=== PATIENT | male | born 1965 | race Caucasian/White ===

== ENCOUNTER 2023-02-03 09:27 | Emergency (ER) | payer OTHER ==
[2023-02-03 09:42] VITALS: TEMP 97.6
[2023-02-03] MEDS ORDERED: Nitrostat 0.4 MG (ED) SL ONE ×2 (09:46→10:05)
[2023-02-03] MEDS ORDERED: BABY ASPIRIN 81 MG CHEW PO ONE (09:47)
[2023-02-03] MEDS ORDERED: BABY ASPIRIN 81 MG CHEW ONE (10:05)
[2023-02-03] MEDS ORDERED: Heparin 25,000 units/D5W: USE ORDER SET PROTO 25,000 UNITS/250 ML BAG IV ONE (10:05)
[2023-02-03] MEDS ORDERED: HEPARIN 5000 UNITS/0.5 ML (HIGH RISK MED) ONE (10:05)
[2023-02-03] MEDS ORDERED: Ntg 0.2MG/Ml in D5W GLASS*** 250 ML IV ONE (10:06)
[2023-02-03] MEDS ORDERED: Sodium Chloride 0.9% 1000 ML 1,000 ML ONE (10:11)
[2023-02-03 10:14] LABS: BASOPHIL % 0.7 % (0.0-0.4); Basophil (Absolute #) 0.04 x10^3/uL (0-0.4); Eosinophil % 3.2 % (0.00-5.0); Eosinophil (Absolute #) 0.18 x10^3/uL (0-0.5); Hematocrit 47.4 % (42-50); Hemoglobin 15.7 g/dL (12.5-18.0); IMMATURE GRAN # 0.01 x10^3u/L (0.00-0.03); IMMATURE GRAN % 0.2 % (0.00-0.4); Lymphocyte (Absolute #) 1.21 x10^3/uL (1.0-4.6); Lymphocytes % 21.3 % (24.0-44.0); Mean Cell Volume 91.9 fL (78-100); Mean Corpuscular Hemoglobin 30.4 pg (26-32); Mean Corpuscular Hgb Concent. 33.1 g/dL (32-36); Mean Platelet Volume 9.8 fL (7.5-11.0); Monocyte (Absolute #) 0.55 x10^3/uL (0.0-1.3); Monocytes % 9.7 % (0.0-12.0); Neutrophil % 64.9 % (36.0-66.0); Platelet Count 203 x10^3/uL (150-450); Red Blood Count 5.16 x10^6/uL (4.1-5.6); Red Cell Distribution Width 13.2 % (11.5-14.0); White Blood Count 5.7 x10^3/uL (4.0-10.5)
--- NOTE | 2023-02-03 10:14 | XRAY ---
Indication: Chest pain. Comparison: None Portable chest hyperinflated with tiny left base calcified granuloma. No focal infiltrate, consolidation, or large effusion. Heart not enlarged. Bony thorax intact with osteopenia and mild degenerative changes. Impression: Nonacute hyperinflated chest with chronic features.
[2023-02-03] MEDS ORDERED: LOPRESSOR INJECTION IV ONE ×4 (10:26→10:35)
[2023-02-03 10:34] LABS: INR 0.97 (0.8-3.0); PROTIME 10.6 SECONDS (9.4-12.5); PTT 26.6 SECONDS (25.1-36.5)
[2023-02-03 10:45] LABS: ALBUMIN 4.7 g/dL (3.5-5.0); ALKALINE PHOSPHATASE 111 U/L (38-126); ANION GAP 13.2 MEQ/L (5-15); BLOOD UREA NITROGEN 11 mg/dL (9-20); CHLORIDE 100 mmol/L (98-107); Calcium 8.9 mg/dL (8.4-10.2); Carbon Dioxide 25 mmol/L (22-30); Creatinine 1 0.64 mg/dL (0.66-1.25); EST GLOMERULAR FILTRATION RATE > 60.0 ML/MIN; Glucose 162 mg/dL (74-106); MAGNESIUM 2.3 mg/dL (1.6-2.3); NT PRO BNPII 680 pg/mL (<300); Potassium 3.7 mmol/L (3.5-5.1); SGOT/AST 33 U/L (17-59); SGPT/ALT 24 U/L (0-50); SODIUM 134 mmol/L (137-145)
[2023-02-03 10:56] VITALS: BP 181/131; PULSE 95; RESP 22
[2023-02-03 11:04] LABS: TROPONIN 0.224 ng/mL (0.000-0.034)
--- NOTE | 2023-02-03 11:31 | ERPHSYRPT ---
- History of Present Illness Historian: patient Exam Limitations: other (Poor historian) Patient Subjective Stated Complaint: Chest pain Triage Nursing Assessment: Patient ambulated back to ED and transferred self to bed. Patient A+O X3. Patient's skin pink, warm and dry. Patient complains of chest pain that started about 1 week ago that has gotten worse. Patient states he stopped taking his blood pressure medication, but started taking med yesterday and the chest pain went away. Patient complains of contant burning tightness to chest to goes into back 4/10. Lungs clear A/P apurva. No edema noted. Physician History: 57 yo WM w PMH of HTN/hyperlipidemia who has not been taking his Lopressor presents w sub-sternal chest pain w radiation to his back x 3.5 hours. Pain described as pressure-burning and was 4/10 and improving upon arrival. The pain was 8/10 at max and was accompanied by dyspnea/diaphoresis wo N/V. He denies h/o FL/CAD. Pt markedly hypertensive upon arrival, and 324 ASA chewable/SL NTG x 1 ordered immediately. Initial EKG demonstrated sinus tach/LVH w strain/prolonged QTc/possible elevation 3/AVF. EKG repeated which demonstrated inferior elevation, so STEMI called. Heparin drip/bolus ordered, along w NTG drip. Region al called, and Dr. Mojica consulted. EKG sent to Dr. Mojica, who confirmed STEMI. Pt given Lopressor 5mg IV x2 for markedly elevated BP/tachycardia. Delay in transfer due to difficult IV access and no ambulance available for transfer. Timing/Duration: other (3.5hrs) Activities at Onset: rest Quality: burning, pressure Location: substernal Chest Pain Radiation: back Severity of Pain-Max: severe Severity of Pain-Current: mild Modifying Factors: Improves With: nothing Associated Symptoms: shortness of breath, diaphoresis Prior Chest Pain/Cardiac Workup: no prior chest pain Nitro Today/Relief: no nitro taken today Aspirin Treatment Today: no aspirin today Allergies/Adverse Reactions: No Known Drug Allergies Allergy (Verified 02/03/23 09:33) Home Medications: Metoprolol Tartrate 25 mg [Lopressor 25MG Tab] 12.5 mg PO BID 02/03/23 [History] Omeprazole Magnesium [Prilosec Otc] 1 tab PO DAILY 02/03/23 [History] Hx Tetanus, Diphtheria Vaccination/Date Given: No Hx Influenza Vaccination/Date Given: No Hx Pneumococcal Vaccination/Date Given: No Immunizations Up to Date: Yes Travel Risk - International Travel Have you traveled outside of the country in past 3 weeks: No - Coronavirus Screening Are you exhibiting any of the following symptoms?: No Close contact with a COVID-19 positive Pt in past 14-21 Days: No - Vaccine Status Have you recieved a Covid-19 vaccination: No - Review of Systems Constitutional: No Symptoms Eyes: No Symptoms Ears, Nose, & Throat: No Symptoms Respiratory: No Symptoms, Dyspnea Cardiac: No Symptoms, Chest Pain Abdominal/Gastrointestinal: No Symptoms Genitourinary Symptoms: No Symptoms Musculoskeletal: No Symptoms Skin: No Symptoms Neurological: No Symptoms Psychological: No Symptoms Endocrine: No Symptoms Hematologic/Lymphatic: No Symptoms Immunological/Allergic: No Symptoms - Past Medical History Pertinent Past Medical History: Yes Neurological History: No Pertinent History ENT History: No Pertinent History Cardiac History: Hypertension Respiratory History: No Pertinent History Endocrine Medical History: No Pertinent History Musculoskeletal History: No Pertinent History GI Medical History: GERD History: No Pertinent History Psycho-Social History: No Pertinent History Male Reproductive Disorders: No Pertinent History - Past Surgical History Past Surgical History: No - Social History Smoking Status: Never smoker Exposure to second hand smoke: No Drug Use: none Patient Lives Alone: Yes - Nursing Vital Signs Nursing Vital Signs: Initial Vital Signs Temperature 97.6 F 02/03/23 09:36 Pulse Rate 95 H 02/03/23 09:36 Respiratory Rate 18 02/03/23 09:36 Blood Pressure 218/143 02/03/23 09:36 O2 Sat by Pulse Oximetry 98 02/03/23 09:36 Pain Scale Pain Intensity 5 Markedly hypertensive - Physical Exam General Appearance: mild distress Eye Exam: PERRL/EOMI, eyes nml inspection Ears, Nose, Throat Exam: normal ENT inspection, TMs normal, pharynx normal, moist mucous membranes Neck Exam: normal inspection, non-tender, supple, full range of motion, No meningismus, No mass, No Brudzinski, No Kernig's Respiratory Exam: crackles/rales (B rales at bases) Cardiovascular Exam: tachycardia, capillary refill <2 sec, edema (Trace B), No murmur Gastrointestinal/Abdomen Exam: soft, normal bowel sounds, No tenderness Back Exam: normal inspection, normal range of motion, No CVA tenderness, No vertebral tenderness Extremity Exam: pedal edema (Trace B), No calf tenderness Neurologic Exam: alert, oriented x 3, cooperative, 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 as tested, normal mood/affect, sensation nml Skin Exam: normal color, warm, dry Lymphatic Exam: No adenopathy SpO2 Interpretation: normal SpO2: 95 O2 Delivery: Room Air - Course Nursing assessment & vital signs reviewed: Yes EKG Interpreted by Me: RATE (Sinus tach/LVH w strain/elevation 3-AVF(Inferior STEMI)/prolonged QTc/EKG#2 NSR/Rate 97/prolonged QRc/Inferior elevation/LVH w strain) - Radiology Exams Chest X-ray Interpretation: Discussed w/ radiologist (NAD per Rad/Mild cardiomegaly w pulmonary vascular congestion per ER read) Ordered Tests: Active Orders 24 hr Category Date Time Status CHEST 1 VIEW (PORTABLE) Stat Exams 02/03/23 09:45 Completed CBC W DIFF Stat Lab 02/03/23 10:15 Completed CMP Stat Lab 02/03/23 10:15 Completed MAGNESIUM Stat Lab 02/03/23 10:15 Completed NT PRO BNPII Stat Lab 02/03/23 10:15 Completed PROTIME WITH INR Stat Lab 02/03/23 10:15 Completed PTT Stat Lab 02/03/23 10:15 Completed TROPONIN Q4H Lab 02/03/23 10:15 Completed Medication Summary Discontinued Medications Generic Name Dose Route Start Last Admin Trade Name Freq PRN Reason Stop Dose Admin Aspirin 324 mg 02/03/23 09:47 02/03/23 10:05 Aspirin 81 Mg Tab.Chew PO 02/03/23 09:48 324 mg STAT ONE Administration Aspirin Confirm 02/03/23 10:05 Aspirin 81 Mg Tab.Chew Administered 02/03/23 10:06 Dose 324 mg .ROUTE .STK-MED ONE Heparin Sodium (Beef Lung) Confirm 02/03/23 10:05 Heparin 5000 Units/0.5 Ml 5,000 Unit/0.5 Ml Syr Administered 02/03/23 10:06 Dose 5,000 unit .ROUTE .STK-MED ONE Heparin Sodium/Dextrose Confirm 02/03/23 10:05 Heparin 25,000 Units/D5w: Use Order Set Riri Administered 02/03/23 10:06 Dose 25,000 units in 250 mls @ ud IV .STK-MED ONE Nitroglycerin/Dextrose Confirm 02/03/23 10:06 Ntg 0.2mg/Ml In D5w Glass Administered 02/03/23 10:07 Dose 250 mls @ ud IV .STK-MED ONE Sodium Chloride Confirm 02/03/23 10:11 Sodium Chloride 0.9% 1000 Ml Administered 02/03/23 10:12 Dose 1,000 mls @ ud .ROUTE .STK-MED ONE Metoprolol Tartrate 5 mg 02/03/23 10:26 Metoprolol Tartrate 5 Mg/5 Ml Vial IV 02/03/23 10:27 STAT ONE Metoprolol Tartrate Confirm 02/03/23 10:26 Metoprolol Tartrate 5 Mg/5 Ml Vial Administered 02/03/23 10:27 Dose 5 mg IV .STK-MED ONE Metoprolol Tartrate 5 mg 02/03/23 10:33 Metoprolol Tartrate 5 Mg/5 Ml Vial IV 02/03/23 10:34 STAT ONE Metoprolol Tartrate Confirm 02/03/23 10:35 Metoprolol Tartrate 5 Mg/5 Ml Vial Administered 02/03/23 10:36 Dose 5 mg IV .STK-MED ONE Nitroglycerin 0.4 mg 02/03/23 09:46 02/03/23 10:05 Nitroglycerin 0.4 Mg (Ed) 0.4 Mg Tab.Subl SL 02/03/23 09:47 0.4 mg STAT ONE Administration Nitroglycerin Confirm 02/03/23 10:05 Nitroglycerin 0.4 Mg (Ed) 0.4 Mg Tab.Subl Administered 02/03/23 10:06 Dose 0.4 mg SL .STK-MED ONE Lab/Rad Data: Laboratory Result Diagrams 02/03/23 10:15 02/03/23 10:15 Laboratory Results 02/03/23 02/03/23 02/03/23 Range/Units 10:15 10:15 10:15 WBC 5.7 (4.0-10.5) x10^3/uL RBC 5.16 (4.1-5.6) x10^6/uL Hgb 15.7 (12.5-18.0) g/dL Hct 47.4 (42-50) % MCV 91.9 (78-100) fL MCH 30.4 (26-32) pg MCHC 33.1 (32-36) g/dL RDW 13.2 (11.5-14.0) % Plt Count 203 (150-450) x10^3/uL MPV 9.8 (7.5-11.0) fL Gran % 64.9 (36.0-66.0) % Immature Gran % (Auto) 0.2 (0.00-0.4) % Nucleat RBC Rel Count 0.0 (0.00-0.1) % Eos # (Auto) 0.18 (0-0.5) x10^3/uL Immature Gran # (Auto) 0.01 (0.00-0.03) x10^3u/L Absolute Lymphs (auto) 1.21 (1.0-4.6) x10^3/uL Absolute Monos (auto) 0.55 (0.0-1.3) x10^3/uL Absolute Nucleated RBC 0.00 (0.00-0.01) x10^3u/L Lymphocytes % 21.3 L (24.0-44.0) % Monocytes % 9.7 (0.0-12.0) % Eosinophils % 3.2 (0.00-5.0) % Basophils % 0.7 (0.0-0.4) % Absolute Granulocytes 3.70 (1.4-6.9) x10^3/uL Basophils # 0.04 (0-0.4) x10^3/uL PT 10.6 (9.4-12.5) SECONDS INR 0.97 (0.8-3.0) APTT 26.6 (25.1-36.5) SECONDS Sodium 134 L (137-145) mmol/L Potassium 3.7 (3.5-5.1) mmol/L Chloride 100 (98-107) mmol/L Carbon Dioxide 25 (22-30) mmol/L Anion Gap 13.2 (5-15) MEQ/L BUN 11 (9-20) mg/dL Creatinine 0.64 L (0.66-1.25) mg/dL Estimated GFR > 60.0 ML/MIN Glucose 162 H (74-106) mg/dL Calcium 8.9 (8.4-10.2) mg/dL Magnesium 2.3 (1.6-2.3) mg/dL Total Bilirubin 0.50 (0.2-1.3) mg/dL AST 33 (17-59) U/L ALT 24 (0-50) U/L Alkaline Phosphatase 111 (38-126) U/L Troponin I 0.224 H* (0.000-0.034) ng/mL NT-Pro-B Natriuret Pep 680 (<300) pg/mL Serum Total Protein 8.0 (6.3-8.2) g/dL Albumin 4.7 (3.5-5.0) g/dL - Progress Progress Note: 02/03/23 11:39 Nursing note and vital signs reviewed No food or housing insecurities noted All lab results reviewed and shared w pt CXR result reviewed and shared w pt Pt accepted by Dr. Mojica at [facility] who agreed STEMI upon EKG review SL NTG x1/ASA 324 chewable po/Heparin 5000unit bolus &1000u per Hr drip/NTG drip started Loprerssor 5mg IV x2 Pt stable upon transfer to [facility] 02/03/23 11:42 BP decreasing upon transfer Counseled pt/family regarding: lab results, diagnosis, rad results Medical Desision Making - Discussion of managment Care discussed with:: specialist Agreed on:: decision to admit - Diagnostic Testing Diagnostic test were ordered, analyzed, and reviewed by me: Yes Radiological Interpretation: Reviewed by me - Risk of complications The pt has a high risk of morbidity or mortality based on: Drug therapy requiring intensive monitoring for toxicity - Departure Departure Disposition: Transfer Clinical Impression: STEMI (ST elevation myocardial infarction), CHF (congestive heart failure), Hypertensive crisis Condition: Stable Critical Care Time: Yes Critical Care Time(excluding separately billable procedures): Critical 75-104 mins Referrals: DOCTOR,NO FAMILY [Primary Care Provider] - Follow up/PCP as directed Instructions: Heart Failure
[2023-02-03 11:36] VITALS: O2SAT 95
== END 2023-02-03 10:45 | disposition short-term general hospital (02) ==
LOC: ED 09:27
DX: I21.19 ST elevation (STEMI) myocardial infarction involving other coronary artery of inferior wall (principal); I50.9 Heart failure, unspecified; I16.9 Hypertensive crisis, unspecified; I11.0 Hypertensive heart disease with heart failure; R07.9 Chest pain, unspecified; R06.00 Dyspnea, unspecified; E78.5 Hyperlipidemia, unspecified; Z79.899 Other long term (current) drug therapy; Z28.310 Unvaccinated for COVID-19
CPT/HCPCS: 36000; 36415; 71045; 80053; 83735; 83880; 84484; 85025; 85610; 85730; 93005; 96374; 96375; 99285; 99291; 99292; J1644; A9270-GY

== ENCOUNTER 2023-03-14 04:07 | Observation (INO) | payer OTHER ==
--- NOTE | 2023-03-14 04:12 | ERPHSYRPT ---
- History of Present Illness Time Seen by Provider: 03/14/23 04:12 Historian: patient Exam Limitations: no limitations Physician History: This is a 57-year-old obese white male patient who was seen here on 02/03/2023 and was diagnosed with a STEMI. Patient was having chest pain at that time. He was transferred to [facility] where he ultimately underwent a cardiac catheterization with angioplasty then placed on Plavix and aspirin which he has been taking ever since as prescribed. Patient also has a significant history of hypertension, gastroesophageal reflux disease hyperlipidemia and CHF. Patient also states that he has had similar episode of rectal bleeding, which is why he is here today, in the past. He was diagnosed with diverticulosis and not di verticulitis at that time. It has been 5 years since his last colonoscopy. Patient woke up this morning, sometime between 1 and 2 AM, because of suprapubic cramping (2 out of 10 pain level) followed by multiple dark red, blood clots with passage of stool. Patient has not taken his morning medication. He has no chest pain. He denies shortness of breath. Timing/Duration: today Quality: cramping Abdominal Pain Onset Location: suprapubic Pain Radiation: no radiation Severity of Pain-Max: mild Severity of Pain-Current: mild Modifying Factors: Improves With: nothing Previous symptoms: same symptoms as today, no recent treatment Allergies/Adverse Reactions: No Known Drug Allergies Allergy (Verified 03/14/23 04:26) Home Medications: Aspirin EC 81 mg [Ecotrin 81 mg] 81 mg PO DAILY 03/14/23 [History] Atorvastatin Calcium [Lipitor] 80 mg PO HS 03/14/23 [History] Carvedilol 12.5 mg [Coreg 12.5 mg] 12.5 mg PO BID 03/14/23 [History] Clopidogrel Bisulfate [Clopidogrel] 75 mg PO DAILY 03/14/23 [History] Spironolactone 25 mg [Aldactone 25 MG] 25 mg PO DAILY 03/14/23 [History] Valsartan 80 mg PO BID 03/14/23 [History] Hx Tetanus, Diphtheria Vaccination/Date Given: No Hx Influenza Vaccination/Date Given: No Hx Pneumococcal Vaccination/Date Given: No Travel Risk - International Travel Have you traveled outside of the country in past 3 weeks: No - Coronavirus Screening Are you exhibiting any of the following symptoms?: No Close contact with a COVID-19 positive Pt in past 14-21 Days: No - Vaccine Status Have you recieved a Covid-19 vaccination: No - Review of Systems Constitutional: No Symptoms Eyes: No Symptoms Ears, Nose, & Throat: No Symptoms Respiratory: No Symptoms Cardiac: No Symptoms Abdominal/Gastrointestinal: Abdominal Pain, Hematochezia Genitourinary Symptoms: No Symptoms Musculoskeletal: No Symptoms Skin: No Symptoms Neurological: No Symptoms Psychological: No Symptoms Endocrine: No Symptoms Hematologic/Lymphatic: No Symptoms Immunological/Allergic: No Symptoms All Other Systems: Reviewed and Negative - Past Medical History Pertinent Past Medical History: Yes Neurological History: No Pertinent History ENT History: No Pertinent History Cardiac History: Hypertension Respiratory History: No Pertinent History Endocrine Medical History: No Pertinent History Musculoskeletal History: No Pertinent History GI Medical History: GERD History: No Pertinent History Psycho-Social History: No Pertinent History Male Reproductive Disorders: No Pertinent History - Past Surgical History Past Surgical History: No - Social History Smoking Status: Never smoker Exposure to second hand smoke: No Drug Use: none Patient Lives Alone: Yes - Nursing Vital Signs Nursing Vital Signs: Initial Vital Signs Temperature 97.6 F 03/14/23 04:11 Pulse Rate 91 H 03/14/23 04:11 Respiratory Rate 18 03/14/23 04:11 Blood Pressure 188/123 03/14/23 04:11 O2 Sat by Pulse Oximetry 95 03/14/23 04:11 Pain Scale Pain Intensity 0 - Physical Exam General Appearance: no apparent distress, alert, anxiety, obese Eye Exam: PERRL/EOMI, eyes nml inspection Ears, Nose, Throat Exam: normal ENT inspection, moist mucous membranes Neck Exam: normal inspection, non-tender, supple, full range of motion Respiratory Exam: normal breath sounds, lungs clear, airway intact, No chest ten derness, No respiratory distress Cardiovascular Exam: regular rate/rhythm, normal heart sounds, normal peripheral pulses Gastrointestinal/Abdomen Exam: soft, normal bowel sounds, tenderness (Mild suprapubic cramping), guarding (Mild suprapubic cramping) Rectal Exam: not done Back Exam: normal inspection, normal range of motion, No CVA tenderness, No vertebral tenderness Extremity Exam: normal inspection, normal range of motion, pelvis stable Neurologic Exam: alert, oriented x 3, 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, 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, normal mood/affect, nml cerebellar function, nml station & gait, sensation nml Skin Exam: normal color, warm Lymphatic Exam: No adenopathy SpO2 Interpretation: normal O2 Delivery: Room Air - Course Nursing assessment & vital signs reviewed: Yes Ordered Tests: Active Orders 24 hr Category Date Time Status EKG-ER Only STAT Care 03/14/23 06:47 Active IV Insertion STAT Care 03/14/23 04:40 Active ABDOMEN AND PELVIS W/0 CONTRAS [CT] Stat Exams 03/14/23 04:42 Completed CBC W DIFF Stat Lab 03/14/23 04:35 Completed CBC W DIFF Stat Lab 03/14/23 06:09 Completed CMP Stat Lab 03/14/23 04:35 Completed PROTIME WITH INR Stat Lab 03/14/23 04:35 Completed TROPONIN Q4H Lab 03/14/23 07:01 Received TROPONIN Q4H Lab 03/14/23 11:00 Ordered TROPONIN Q4H Lab 03/14/23 15:00 Ordered Medication Summary Generic Name Dose Route Start Last Admin Trade Name Freq PRN Reason Stop Dose Admin Sodium Chloride 1,000 mls @ 200 mls/hr 03/14/23 07:00 03/14/23 06:49 Sodium Chloride 0.9% 1000 Ml IV 04/13/23 06:59 200 mls/hr .Q5H RYAN Administration Discontinued Medications Generic Name Dose Route Start Last Admin Trade Name Freq PRN Reason Stop Dose Admin Sodium Chloride 1,000 mls @ 999 mls/hr 03/14/23 04:40 03/14/23 05:57 Sodium Chloride 0.9% 1000 Ml IV 03/14/23 05:40 Infused .Q1H1M STA Infusion Sodium Chloride Confirm 03/14/23 04:49 Sodium Chloride 0.9% 1000 Ml Administered 03/14/23 04:50 Dose 1,000 mls @ ud .ROUTE .STK-MED ONE Sodium Chloride Confirm 03/14/23 06:45 Sodium Chloride 0.9% 1000 Ml Administered 03/14/23 06:46 Dose 1,000 mls @ ud .ROUTE .STK-MED ONE Metoprolol Tartrate 5 mg 03/14/23 04:42 03/14/23 05:00 Metoprolol Tartrate 5 Mg/5 Ml Vial IV 03/14/23 04:43 2.5 mg STAT ONE Administration Metoprolol Tartrate Confirm 03/14/23 04:49 Metoprolol Tartrate 5 Mg/5 Ml Vial Administered 03/14/23 04:50 Dose 5 mg IV .STK-MED ONE Pantoprazole Sodium 40 mg 03/14/23 04:42 03/14/23 04:58 Pantoprazole 40 Mg Vial IV 03/14/23 04:43 40 mg STAT ONE Administration Pantoprazole Sodium Confirm 03/14/23 04:49 Pantoprazole 40 Mg Vial Administered 03/14/23 04:50 Dose 40 mg IV .STK-MED ONE Lab/Rad Data: Laboratory Result Diagrams 03/14/23 06:09 03/14/23 04:35 Laboratory Results 03/14/23 03/14/23 03/14/23 Range/Units 06:09 04:35 04:35 WBC 7.1 (4.0-10.5) x10^3/uL RBC 4.22 (4.1-5.6) x10^6/uL Hgb 12.5 (12.5-18.0) g/dL Hct 39.7 L (42-50) % MCV 94.1 (78-100) fL MCH 29.6 (26-32) pg MCHC 31.5 L (32-36) g/dL RDW 12.9 (11.5-14.0) % Plt Count 227 (150-450) x10^3/uL MPV 9.7 (7.5-11.0) fL Gran % 72.5 H (36.0-66.0) % Immature Gran % (Auto) 0.3 (0.00-0.4) % Nucleat RBC Rel Count 0.0 (0.00-0.1) % Eos # (Auto) 0.33 (0-0.5) x10^3/uL Immature Gran # (Auto) 0.02 (0.00-0.03) x10^3u/L Absolute Lymphs (auto) 1.04 (1.0-4.6) x10^3/uL Absolute Monos (auto) 0.54 (0.0-1.3) x10^3/uL Absolute Nucleated RBC 0.00 (0.00-0.01) x10^3u/L Lymphocytes % 14.6 L (24.0-44.0) % Monocytes % 7.6 (0.0-12.0) % Eosinophils % 4.6 (0.00-5.0) % Basophils % 0.4 (0.0-0.4) % Absolute Granulocytes 5.14 (1.4-6.9) x10^3/uL Basophils # 0.03 (0-0.4) x10^3/uL PT 10.9 (9.4-12.5) SECONDS INR 1.00 (0.8-3.0) Sodium 133 L (137-145) mmol/L Potassium 4.2 (3.5-5.1) mmol/L Chloride 100 (98-107) mmol/L Carbon Dioxide 22 (22-30) mmol/L Anion Gap 14.9 (5-15) MEQ/L BUN 12 (9-20) mg/dL Creatinine 0.67 (0.66-1.25) mg/dL Estimated GFR 107.6 ML/MIN Glucose 158 H (74-106) mg/dL Calcium 9.4 (8.4-10.2) mg/dL Total Bilirubin 0.50 (0.2-1.3) mg/dL AST 25 (17-59) U/L ALT 23 (0-50) U/L Alkaline Phosphatase 98 (38-126) U/L Serum Total Protein 7.4 (6.3-8.2) g/dL Albumin 4.1 (3.5-5.0) g/dL 03/14/23 Range/Units 04:35 WBC 4.6 (4.0-10.5) x10^3/uL RBC 4.60 (4.1-5.6) x10^6/uL Hgb 13.6 (12.5-18.0) g/dL Hct 42.4 (42-50) % MCV 92.2 (78-100) fL MCH 29.6 (26-32) pg MCHC 32.1 (32-36) g/dL RDW 12.9 (11.5-14.0) % Plt Count 236 (150-450) x10^3/uL MPV 9.6 (7.5-11.0) fL Gran % 61.1 (36.0-66.0) % Immature Gran % (Auto) 0.4 (0.00-0.4) % Nucleat RBC Rel Count 0.0 (0.00-0.1) % Eos # (Auto) 0.32 (0-0.5) x10^3/uL Immature Gran # (Auto) 0.02 (0.00-0.03) x10^3u/L Absolute Lymphs (auto) 0.95 L (1.0-4.6) x10^3/uL Absolute Monos (auto) 0.47 (0.0-1.3) x10^3/uL Absolute Nucleated RBC 0.00 (0.00-0.01) x10^3u/L Lymphocytes % 20.8 L (24.0-44.0) % Monocytes % 10.3 (0.0-12.0) % Eosinophils % 7.0 H (0.00-5.0) % Basophils % 0.4 (0.0-0.4) % Absolute Granulocytes 2.78 (1.4-6.9) x10^3/uL Basophils # 0.02 (0-0.4) x10^3/uL PT (9.4-12.5) SECONDS INR (0.8-3.0) Sodium (137-145) mmol/L Potassium (3.5-5.1) mmol/L Chloride (98-107) mmol/L Carbon Dioxide (22-30) mmol/L Anion Gap (5-15) MEQ/L BUN (9-20) mg/dL Creatinine (0.66-1.25) mg/dL Estimated GFR ML/MIN Glucose (74-106) mg/dL Calcium (8.4-10.2) mg/dL Total Bilirubin (0.2-1.3) mg/dL AST (17-59) U/L ALT (0-50) U/L Alkaline Phosphatase (38-126) U/L Serum Total Protein (6.3-8.2) g/dL Albumin (3.5-5.0) g/dL - Progress Progress: improved, pain not gone completely, re-examined Progress Note: 03/14/23 05:14 This patient's medical issue is 1 of moderate complexity. The level complex in the workup performed is based on review the patient's past medical history, review the patient's medication list, review of patient's drug allergy list, history of present illness and physical findings on examination. The workup in this patient includes placement of intravenous line, infusion of normal saline solution, CBC, CMP, PT/INR, CT scan abdomen pelvis without contrast. 03/14/23 06:13 I reviewed and interpreted the patient's laboratory data results. There is no evidence of any acute, emergent findings. CAT scan of the abdomen pelvis without contrast shows no acute abdominal or pelvic pathology. There is uncomplicated colonic diverticulosis. The appendix is unremarkable. There is no free intraperitoneal air and no ascites or free intra-abdominal or intrapelvic fluid. I reevaluated the patient. He specifically states that the rectal bleeding has slowed down significantly. He has heart rate in the 80s and his systolic blood pressure has dropped to 114. However, we did provide him with 2.5 mg of Lopressor secondary to a systolic blood pressure on admission of 181. My plan is to obtain a stat repeat CBC. If the hemoglobin is stable, we will discharge him to home with a prescription to follow-up today, 03/14/2023, for repeat CBC as an outpatient. The results will be called to the emergency department. The patient does not have an outpatient medical provider. 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 Mojica, that we told the patient to stop the Plavix and aspirin as he is having rectal bleeding. He will obtain further recommendations from Dr. Mojica as to when to restart his Plavix and aspirin. 03/14/23 06:16 If the patient's repeat hemoglobin level has dropped significantly, we will place the patient in observation for serial hemoglobin and hematocrit levels and monitoring. 03/14/23 06:43 The repeat hemoglobin was 12.5. However, clinically, the patient had what appears to be a vasovagal episode. This patient will be placed in observation for serial hemoglobin hematocrit levels as well as monitoring for the potential need of blood transfusion. Patient is now awake alert oriented. He has no complaints of abdominal pain but does have the sensation he has to have another bowel movement. He also has no shortness of breath or chest pain. His heart rate is 85. 03/14/23 06:57 Twelve-lead EKG after his vasovagal episode shows patient in normal sinus rhythm with a heart rate of 88. No evidence of acute ischemia. There is normal QRS normal intervals 03/14/23 07:03 I spoke with telehospitalist Dr. Davalos. I reviewed the patient history, admitting complaint, physical findings and workup results including twelve-lead EKG, laboratory data and the CT scan abdomen pelvis. I also informed him of the vasovagal episode as well as the twelve-lead EKG results that was obtained after the vasovagal episode. He agrees we should place this patient in observation with serial hemoglobin hematocrit levels. Counseled pt/family regarding: lab results, diagnosis, rad results Medical Desision Making - Diagnostic Testing Diagnostic test were ordered, analyzed, and reviewed by me: Yes Radiological Interpretation: Reviewed by me, Teleradiologist Report - Risk of complications The pt has a high risk of morbidity or mortality based on: Decision regarding ho spitilization or escalation of hosp level of care - Departure Departure Disposition: Observation Clinical Impression: Rectal bleeding, Vasovagal episode Condition: Fair Critical Care Time: No Referrals: DOCTOR,NO FAMILY [Primary Care Provider] - Follow up/PCP as directed
[2023-03-14] MEDS ORDERED: Sodium Chloride 0.9% 1000 ML 1,000 ML IV STA (04:40)
[2023-03-14] MEDS ORDERED: LOPRESSOR INJECTION IV ONE ×2 (04:42→04:49)
[2023-03-14] MEDS ORDERED: PROTONIX 40 MG IV IV ONE ×2 (04:42→04:49)
[2023-03-14] MEDS ORDERED: Sodium Chloride 0.9% 1000 ML 1,000 ML ONE ×2 (04:49→06:45)
[2023-03-14 04:51] LABS: Absolute Neutrophil Ct (ANC) 2.78 x10^3/uL (1.4-6.9); BASOPHIL % 0.4 % (0.0-0.4); Basophil (Absolute #) 0.02 x10^3/uL (0-0.4); Eosinophil (Absolute #) 0.32 x10^3/uL (0-0.5); Hematocrit 42.4 % (42-50); Hemoglobin 13.6 g/dL (12.5-18.0); IMMATURE GRAN # 0.02 x10^3u/L (0.00-0.03); IMMATURE GRAN % 0.4 % (0.00-0.4); Lymphocyte (Absolute #) 0.95 x10^3/uL (1.0-4.6); Lymphocytes % 20.8 % (24.0-44.0); Mean Cell Volume 92.2 fL (78-100); Mean Corpuscular Hemoglobin 29.6 pg (26-32); Mean Corpuscular Hgb Concent. 32.1 g/dL (32-36); Mean Platelet Volume 9.6 fL (7.5-11.0); Monocyte (Absolute #) 0.47 x10^3/uL (0.0-1.3); Monocytes % 10.3 % (0.0-12.0); Neutrophil % 61.1 % (36.0-66.0); Platelet Count 236 x10^3/uL (150-450); Red Cell Distribution Width 12.9 % (11.5-14.0); White Blood Count 4.6 x10^3/uL (4.0-10.5)
[2023-03-14 04:57] LABS: PROTIME 10.9 SECONDS (9.4-12.5)
[2023-03-14 04:58] LABS: ALBUMIN 4.1 g/dL (3.5-5.0); ANION GAP 14.9 MEQ/L (5-15); BILIRUBIN,TOTAL 0.5 mg/dL (0.2-1.3); Calcium 9.4 mg/dL (8.4-10.2); Creatinine 1 0.67 mg/dL (0.66-1.25); EST GLOMERULAR FILTRATION RATE 107.6 ML/MIN; Potassium 4.2 mmol/L (3.5-5.1); Total Protein 7.4 g/dL (6.3-8.2)
--- NOTE | 2023-03-14 05:46 | XRAY ---
CLINICAL HISTORY:Rectal bleeding COMPARISON:None. TECHNIQUE:Continuous axial CT of the abdomen and pelvis was performed in axial plane with sagittal and coronal reconstructed images without intravenous contrast adminstration. Limited organ visualization due to absence of contrast. FINDINGS: The liver is normal in size, morphology and appears unremarkable with no intrahepatic or extrahepatic bile duct dilation. The gallbladder appears unremarkable and does not show stones, wall thickening, or pericholecystic inflammatory changes, or fluid. Unremarkable appearing pancreas. No pancreatic mass or ductal dilatation is seen. Unremarkable appearing spleen. The adrenal glands are normal. The kidneys appear unremarkable with no stones, cysts, masses or hydronephrosis. The ureters are normal with no stones. Urinary bladder is partially filled and appeared normal. Prostate appears unremarkable. Unremarkable appearing stomach and duodenum. Small Bowel and colon are non-distended with no obstruction. No appendiceal abnormality seen. Uncomplicated colonic diverticulosis seen. Appendix is unremarkable. Limited evaluation for gastrointestinal bleeding as CT is not performed using GI bleeding protocol [plain, with postcontrast images including delayed images]. However, no abnormal hyperdensity is seen in the rectal region. No free air and no ascites. No free intraperitoneal air is seen. Unremarkable abdominal aorta without specific evidence of aneurysm or dissection. IVC is normal. No significant lymphadenopathy detected. Decreased vertebral body height of T12 is seen. Mild anterior listhesis of L5-S1 is noted with related pars interarticularis defect. Lumbar spine anterior osteophytosis is seen. 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 Visualized bilateral lung bases show atelectatic changes and a left lower lobe calcified nodule/granuloma. IMPRESSION: 1. No acute abdominal or pelvic pathology seen. 2. Uncomplicated colonic diverticulosis. 3. Moderate lumber spondylosis. 4. Decreased vertebral body height of T12. 5. Mild anterior listhesis of L5-S1 is noted with related pars interarticularis defect. 6. Bilateral lung bases atelectatic changes and a left lower lobe calcified nodule/granuloma. Electronically Signed by: Vivian Jara MD. (03/14/2023 05:42:42 EST)
[2023-03-14 06:24] LABS: Absolute Neutrophil Ct (ANC) 5.14 x10^3/uL (1.4-6.9); BASOPHIL % 0.4 % (0.0-0.4); Basophil (Absolute #) 0.03 x10^3/uL (0-0.4); Eosinophil % 4.6 % (0.00-5.0); Eosinophil (Absolute #) 0.33 x10^3/uL (0-0.5); Hematocrit 39.7 % (42-50); Hemoglobin 12.5 g/dL (12.5-18.0); IMMATURE GRAN # 0.02 x10^3u/L (0.00-0.03); IMMATURE GRAN % 0.3 % (0.00-0.4); Lymphocyte (Absolute #) 1.04 x10^3/uL (1.0-4.6); Lymphocytes % 14.6 % (24.0-44.0); Mean Cell Volume 94.1 fL (78-100); Mean Corpuscular Hemoglobin 29.6 pg (26-32); Mean Corpuscular Hgb Concent. 31.5 g/dL (32-36); Mean Platelet Volume 9.7 fL (7.5-11.0); Monocyte (Absolute #) 0.54 x10^3/uL (0.0-1.3); Monocytes % 7.6 % (0.0-12.0); Neutrophil % 72.5 % (36.0-66.0); Platelet Count 227 x10^3/uL (150-450); Red Blood Count 4.22 x10^6/uL (4.1-5.6); Red Cell Distribution Width 12.9 % (11.5-14.0); White Blood Count 7.1 x10^3/uL (4.0-10.5)
[2023-03-14] MEDS ORDERED: Sodium Chloride 0.9% 1000 ML 1,000 ML IV SCH (07:00)
--- NOTE | 2023-03-14 08:48 | PCM.HP ---
History of Present Illness - Chief Complaint Chief Complaint: Rectal bleeding Date: 03/14/23 History of Present Illness: is a 57 year old male with a past medical history of STEMI (02/03/23, placed on ASA/Plavix follows with Dr. Lee), HTN, GERD, HLD, diverticulosis, rectal bleeding (last colonoscopy 5 years ago), and CHF who presented to ED on 03/14/23 with complaints of left sided sharp/cramping abdominal pain, nausea, and diarrhea with moderate bright red blood and clots which began approximately at 1 a.m this morning. Patient states he had a similar episode about 3-4 years ago for which colonoscopy showed diverticulosis. Patient arrived hypertensive and was given Lopressor, shortly after patient states he was sitting up in bed and felt faint. Patient endorses improvement in rectal bleeding, no further near- syncopal episodes. UPon arrival to ED patient was afebrile, mildly tachycardic with HR at 91, hypertensive with BP at 188/123, with spo2@95% on RA. CT showing no acute etiologies, uncomplicated diverticulosis without diverticulitis. EKG with NS, no ST elevation/deviations, acute ischemic changes. Lab findings unremarkable. Mild hyponatremia at 133. Of note, hemoglobin trend 12.5<13.6. Patient - Review of Systems Constitutional: No Symptoms Eyes: No Symptoms Ears, Nose, & Throat: No Symptoms Respiratory: No Symptoms Cardiac: No Symptoms Abdominal/Gastrointestinal: Abdominal Pain, Nausea, Diarrhea, Hematochezia Genitourinary Symptoms: No Symptoms Musculoskeletal: No Symptoms Skin: No Symptoms Neurological: No Symptoms Psychological: No Symptoms Endocrine: No Symptoms Hematologic/Lymphatic: Anemia Immunological/Allergic: No Symptoms Medications & Allergies Home Medications: Home Medication List Aspirin EC 81 mg [Ecotrin 81 mg] 81 mg PO DAILY 03/14/23 [History Confirmed 03/14/23] Atorvastatin Calcium [Lipitor] 80 mg PO HS 03/14/23 [History Confirmed 03/14/23] Carvedilol 12.5 mg [Coreg 12.5 mg] 12.5 mg PO BID 03/14/23 [History Confirmed 03/14/23] Clopidogrel Bisulfate [Clopidogrel] 75 mg PO DAILY 03/14/23 [History Confirmed 03/14/23] Spironolactone 25 mg [Aldactone 25 MG] 25 mg PO DAILY 03/14/23 [History Confirmed 03/14/23] Valsartan 80 mg PO BID 03/14/23 [History Confirmed 03/14/23] Allergies/Adverse Reactions: Allergies Allergy/AdvReac Type Severity Reaction Status Date / Time No Known Drug Allergies Allergy Verified 03/14/23 04:26 - Past Medical History Past Medical History: Yes Neurological History: No Pertinent History ENT History: No Pertinent History Cardiac History: Hypertension Respiratory History: No Pertinent History Endocrine Medical History: No Pertinent History Musculoskelatal History: No Pertinent History GI Medical History: GERD History: No Pertinent History Pyscho-Social History: No Pertinent History Male Reproductive Disorders: No Pertinent History Comment: hx of diverticulosis and gi bleed. - Past Surgical History Past Surgical History: No Other Surgical History: colonoscopy, heart cath - Social History Smoking Status: Never smoker Exposure to second hand smoke: No Alcohol: Weekly Drug Use: none - Physical Exam Vital Signs: Vital Signs - 24 hr Temp Pulse Resp BP BP Pulse Ox 03/14/23 06:30 100 H 18 101/83 93 L 03/14/23 06:21 96 H 14 111/86 95 03/14/23 06:20 99 H 22 03/14/23 06:12 109 H 18 03/14/23 06:00 102 H 17 114/89 93 L 03/14/23 05:45 83 18 132/99 95 03/14/23 05:30 72 18 139/99 97 03/14/23 05:20 77 24 153/102 03/14/23 05:10 77 16 149/99 95 03/14/23 05:00 74 20 163/105 94 L 03/14/23 04:40 84 16 174/114 93 L 03/14/23 04:11 97.6 F 91 H 18 188/123 95 General Appearance: no apparent distress Neurologic Exam: alert, oriented x 3, cooperative Eye Exam: PERRL/EOMI Ears, Nose, Throat Exam: normal ENT inspection Neck Exam: normal inspection Respiratory Exam: normal breath sounds, lungs clear Cardiovascular Exam: regular rate/rhythm, normal heart sounds Gastrointestinal/Abdomen Exam: soft, normal bowel sounds Rectal Exam: deferred Back Exam: normal inspection Extremity Exam: normal inspection Skin Exam: normal color Results - Labs Lab/Micro Results: Lab Results-Last 24 Hours 12/01/23 12/01/23 12/01/23 Range/Units 04:35 04:35 04:35 WBC 4.6 (4.0-10.5) x10^3/uL RBC 4.60 (4.1-5.6) x10^6/uL Hgb 13.6 (12.5-18.0) g/dL Hct 42.4 (42-50) % MCV 92.2 (78-100) fL MCH 29.6 (26-32) pg MCHC 32.1 (32-36) g/dL RDW 12.9 (11.5-14.0) % Plt Count 236 (150-450) x10^3/uL MPV 9.6 (7.5-11.0) fL Gran % 61.1 (36.0-66.0) % Immature Gran % (Auto) 0.4 (0.00-0.4) % Nucleat RBC Rel Count 0.0 (0.00-0.1) % Eos # (Auto) 0.32 (0-0.5) x10^3/uL Immature Gran # (Auto) 0.02 (0.00-0.03) x10^3u/L Absolute Lymphs (auto) 0.95 L (1.0-4.6) x10^3/uL Absolute Monos (auto) 0.47 (0.0-1.3) x10^3/uL Absolute Nucleated RBC 0.00 (0.00-0.01) x10^3u/L Lymphocytes % 20.8 L (24.0-44.0) % Monocytes % 10.3 (0.0-12.0) % Eosinophils % 7.0 H (0.00-5.0) % Basophils % 0.4 (0.0-0.4) % Absolute Granulocytes 2.78 (1.4-6.9) x10^3/uL Basophils # 0.02 (0-0.4) x10^3/uL PT 10.9 (9.4-12.5) SECONDS INR 1.00 (0.8-3.0) Sodium 133 L (137-145) mmol/L Potassium 4.2 (3.5-5.1) mmol/L Chloride 100 (98-107) mmol/L Carbon Dioxide 22 (22-30) mmol/L Anion Gap 14.9 (5-15) MEQ/L BUN 12 (9-20) mg/dL Creatinine 0.67 (0.66-1.25) mg/dL Estimated GFR 107.6 ML/MIN Glucose 158 H (74-106) mg/dL POC Glucometer (74 to 106) mg/dL Calcium 9.4 (8.4-10.2) mg/dL Total Bilirubin 0.50 (0.2-1.3) mg/dL AST 25 (17-59) U/L ALT 23 (0-50) U/L Alkaline Phosphatase 98 (38-126) U/L Troponin I (0.000-0.034) ng/mL Serum Total Protein 7.4 (6.3-8.2) g/dL Albumin 4.1 (3.5-5.0) g/dL 03/14/23 03/14/23 03/14/23 Range/Units 06:09 06:43 07:01 WBC 7.1 (4.0-10.5) x10^3/uL RBC 4.22 (4.1-5.6) x10^6/uL Hgb 12.5 (12.5-18.0) g/dL Hct 39.7 L (42-50) % MCV 94.1 (78-100) fL MCH 29.6 (26-32) pg MCHC 31.5 L (32-36) g/dL RDW 12.9 (11.5-14.0) % Plt Count 227 (150-450) x10^3/uL MPV 9.7 (7.5-11.0) fL Gran % 72.5 H (36.0-66.0) % Immature Gran % (Auto) 0.3 (0.00-0.4) % Nucleat RBC Rel Count 0.0 (0.00-0.1) % Eos # (Auto) 0.33 (0-0.5) x10^3/uL Immature Gran # (Auto) 0.02 (0.00-0.03) x10^3u/L Absolute Lymphs (auto) 1.04 (1.0-4.6) x10^3/uL Absolute Monos (auto) 0.54 (0.0-1.3) x10^3/uL Absolute Nucleated RBC 0.00 (0.00-0.01) x10^3u/L Lymphocytes % 14.6 L (24.0-44.0) % Monocytes % 7.6 (0.0-12.0) % Eosinophils % 4.6 (0.00-5.0) % Basophils % 0.4 (0.0-0.4) % Absolute Granulocytes 5.14 (1.4-6.9) x10^3/uL Basophils # 0.03 (0-0.4) x10^3/uL PT (9.4-12.5) SECONDS INR (0.8-3.0) Sodium (137-145) mmol/L Potassium (3.5-5.1) mmol/L Chloride (98-107) mmol/L Carbon Dioxide (22-30) mmol/L Anion Gap (5-15) MEQ/L BUN (9-20) mg/dL Creatinine (0.66-1.25) mg/dL Estimated GFR ML/MIN Glucose (74-106) mg/dL POC Glucometer 153 H (74 to 106) mg/dL Calcium (8.4-10.2) mg/dL Total Bilirubin (0.2-1.3) mg/dL AST (17-59) U/L ALT (0-50) U/L Alkaline Phosphatase (38-126) U/L Troponin I < 0.012 (0.000-0.034) ng/mL Serum Total Protein (6.3-8.2) g/dL Albumin (3.5-5.0) g/dL - Radiology Impressions Radiology Exams & Impressions: Radiology Procedures Category Date Time Status ABDOMEN AND PELVIS W/0 CONTRAS [CT] Stat Exams 03/14/23 04:42 Completed Assessment/Plan (1) Rectal bleeding Current Visit: Yes Status: Acute Assessment & Plan: -Consult surgery for colonoscopy/EGD if able, may have to do as OP with GI re ferral -HGB is stable, will monitor H&H Q8h, transfuse if <7 -PT/INR at 1 -Continuous tele -NS at 100 ml/hr -PPI- protonix -Avoid NSAIDS/ASA -Hold plavix for now - Code(s): K62.5 - HEMORRHAGE OF ANUS AND RECTUM (2) History of ST elevation myocardial infarction (STEMI) Current Visit: Yes Status: Acute Assessment & Plan: -Noted, EKG, Trops unremarkable -No CP Code(s): I25.2 - OLD MYOCARDIAL INFARCTION (3) Vasovagal episode Current Visit: Yes Status: Acute Assessment & Plan: -May be secondary to lopressor Code(s): R55 - SYNCOPE AND COLLAPSE (4) CHF (congestive heart failure) Current Visit: No Status: Acute Assessment & Plan: -noted will continue home meds -Supplemental oxygen for goal of >92% -Monitor for fluid overload, Consider lasix if exacerbation -Strict I&O -BNP -Optimize renal/lytes with goal K>4 MG>2 Code(s): I50.9 - HEART FAILURE, UNSPECIFIED (5) Hypertension Current Visit: No Status: Acute Qualifiers: Hypertension type: unspecified secondary hypertension Assessment & Plan: -Patient given Lopressor in ED, vitals now stable, will continue home medications Code(s): I10 - ESSENTIAL (PRIMARY) HYPERTENSION
[2023-03-14] MEDS ORDERED: TYLENOL 325 MG PO PRN (08:59)
[2023-03-14 10:03] LABS: Hematocrit 36.1 % (42-50); Hemoglobin 11.5 g/dL (12.5-18.0)
[2023-03-14] MEDS ORDERED: DUONEB 0.5-3 MG/3 ml Neb IH PRN (10:15)
[2023-03-14] MEDS ORDERED: Zofran 4 MG/2 ML VIAL IV PRN (10:15)
[2023-03-14] MEDS ORDERED: PROTONIX 40 MG IV IV SCH (11:00)
[2023-03-14] MEDS: Sodium Chloride 0.9% 1000 ML 1,000 ML IV SCH ×2 (12:15→22:05)
[2023-03-14] MEDS: COREG 12.5 MG PO SCH ×2 (12:22→22:05)
[2023-03-14] MEDS: Aldactone 25 MG PO SCH (12:22)
[2023-03-14] MEDS: DIOVAN 80 MG PO SCH ×2 (12:23→22:05)
[2023-03-14 16:45] LABS: Hematocrit 33.1 % (42-50); Hemoglobin 10.5 g/dL (12.5-18.0)
[2023-03-14] MEDS: ZOCOR 20MG PO SCH (22:05)
[2023-03-14] MEDS: PROTONIX 40 MG IV IV SCH (22:05)
[2023-03-14 22:26] LABS: Hematocrit 31.9 % (42-50); Hemoglobin 10.2 g/dL (12.5-18.0)
--- NOTE | 2023-03-15 05:08 | PCM.NOTE ---
Date and Time: 03/15/23 050 Subjective Assessment: is a 57 year old male with a past medical history of STEMI (02/03/23, placed on ASA/Plavix follows with Dr. Lee), HTN, GERD, HLD, diverticulosis, rectal bleeding (last colonoscopy 5 years ago), and CHF who presented to ED on 03/14/23 with complaints of left sided sharp/cramping abdominal pain, nausea, and diarrhea with moderate bright red blood and clots which began approximately at 1 a.m this morning. Patient states he had a similar episode about 3-4 years ago for which colonoscopy showed diverticulosis. Patient arrived hypertensive and was given Lopressor, shortly after patient states he was sitting up in bed and felt faint. Patient endorses improvement in rectal bleeding, no further near- syncopal episodes. 03/15: No overnight events noted. Patient no longer having abdominal pain, no more incidence of rectal bleeding. Hgb is down to 9.7 this morning. Surgery consulted, plans for colonoscopy today. Most likely will d/c tomorrow. - Review of Systems Constitutional: No Symptoms Eyes: No Symptoms Ears, Nose, & Throat: No Symptoms Respiratory: No Symptoms Cardiac: No Symptoms Abdominal/Gastrointestinal: No Symptoms Genitourinary Symptoms: No Symptoms Musculoskeletal: No Symptoms Skin: No Symptoms Neurological: No Symptoms Psychological: No Symptoms Endocrine: No Symptoms Hematologic/Lymphatic: Anemia Immunological/Allergic: No Symptoms Objective Exam General Appearance: no apparent distress Neurologic Exam: alert, oriented x 3, cooperative Skin Exam: normal color Eye Exam: PERRL Ears, Nose, Throat Exam: normal ENT inspection Neck Exam: normal inspection Respiratory Exam: normal breath sounds, lungs clear Cardiovascular Exam: regular rate/rhythm, normal heart sounds Gastrointestinal/Abdomen Exam: soft, normal bowel sounds Extremity Exam: normal inspection Back Exam: normal inspection OBJECTIVE DATA Vital Signs: Vital Signs - 24 hr Temp Pulse Resp BP BP Pulse Ox 03/15/23 04:00 97.8 F 68 16 154/90 97 03/14/23 23:49 97.6 F 93 H 18 140/85 95 03/14/23 20:00 98 F 77 10 L 128/75 92 L 03/14/23 16:00 97.0 F 80 17 136/82 94 L 03/14/23 12:00 97.0 F 88 17 120/80 96 03/14/23 10:54 76 18 98 03/14/23 09:27 97.0 F 76 17 123/80 98 03/14/23 08:49 97.0 F 76 17 123/80 98 03/14/23 08:42 97.0 F 76 17 123/80 98 03/14/23 06:30 100 H 18 101/83 93 L 03/14/23 06:21 96 H 14 111/86 95 03/14/23 06:20 99 H 22 03/14/23 06:12 109 H 18 03/14/23 06:00 102 H 17 114/89 93 L 03/14/23 05:45 83 18 132/99 95 03/14/23 05:30 72 18 139/99 97 03/14/23 05:20 77 24 153/102 03/14/23 05:10 77 16 149/99 95 Pain Assessment - Last Documented Pain Intensity 0 Intake and Output: Intake & Output 03/12/23 03/13/23 03/14/23 03/15/23 11:59 11:59 11:59 11:59 Intake Total 0 0 Output Total 400 Balance 0 -400 Weight 107.5 kg Lab Results: Lab Results-Last 24 Hours 03/14/23 03/14/23 03/14/23 Range/Units 06:09 06:43 07:00 WBC 7.1 (4.0-10.5) x10^3/uL RBC 4.22 (4.1-5.6) x10^6/uL Hgb 12.5 (12.5-18.0) g/dL Hct 39.7 L (42-50) % MCV 94.1 (78-100) fL MCH 29.6 (26-32) pg MCHC 31.5 L (32-36) g/dL RDW 12.9 (11.5-14.0) % Plt Count 227 (150-450) x10^3/uL MPV 9.7 (7.5-11.0) fL Gran % 72.5 H (36.0-66.0) % Immature Gran % (Auto) 0.3 (0.00-0.4) % Nucleat RBC Rel Count 0.0 (0.00-0.1) % Eos # (Auto) 0.33 (0-0.5) x10^3/uL Immature Gran # (Auto) 0.02 (0.00-0.03) x10^3u/L Absolute Lymphs (auto) 1.04 (1.0-4.6) x10^3/uL Absolute Monos (auto) 0.54 (0.0-1.3) x10^3/uL Absolute Nucleated RBC 0.00 (0.00-0.01) x10^3u/L Lymphocytes % 14.6 L (24.0-44.0) % Monocytes % 7.6 (0.0-12.0) % Eosinophils % 4.6 (0.00-5.0) % Basophils % 0.4 (0.0-0.4) % Absolute Granulocytes 5.14 (1.4-6.9) x10^3/uL Basophils # 0.03 (0-0.4) x10^3/uL POC Glucometer 153 H (74 to 106) mg/dL Hemoglobin A1c (4.5-6.0) % Troponin I (0.000-0.034) ng/mL NT-Pro-B Natriuret Pep 1750 (<300) pg/mL 03/14/23 03/14/23 03/14/23 Range/Units 07:00 07:01 09:55 WBC (4.0-10.5) x10^3/uL RBC (4.1-5.6) x10^6/uL Hgb (12.5-18.0) g/dL Hct (42-50) % MCV (78-100) fL MCH (26-32) pg MCHC (32-36) g/dL RDW (11.5-14.0) % Plt Count (150-450) x10^3/uL MPV (7.5-11.0) fL Gran % (36.0-66.0) % Immature Gran % (Auto) (0.00-0.4) % Nucleat RBC Rel Count (0.00-0.1) % Eos # (Auto) (0-0.5) x10^3/uL Immature Gran # (Auto) (0.00-0.03) x10^3u/L Absolute Lymphs (auto) (1.0-4.6) x10^3/uL Absolute Monos (auto) (0.0-1.3) x10^3/uL Absolute Nucleated RBC (0.00-0.01) x10^3u/L Lymphocytes % (24.0-44.0) % Monocytes % (0.0-12.0) % Eosinophils % (0.00-5.0) % Basophils % (0.0-0.4) % Absolute Granulocytes (1.4-6.9) x10^3/uL Basophils # (0-0.4) x10^3/uL POC Glucometer (74 to 106) mg/dL Hemoglobin A1c 6.19 H (4.5-6.0) % Troponin I < 0.012 < 0.012 (0.000-0.034) ng/mL NT-Pro-B Natriuret Pep (<300) pg/mL 03/14/23 03/14/23 03/14/23 Range/Units 09:55 11:54 15:10 WBC (4.0-10.5) x10^3/uL RBC (4.1-5.6) x10^6/uL Hgb 11.5 L (12.5-18.0) g/dL Hct 36.1 L (42-50) % MCV (78-100) fL MCH (26-32) pg MCHC (32-36) g/dL RDW (11.5-14.0) % Plt Count (150-450) x10^3/uL MPV (7.5-11.0) fL Gran % (36.0-66.0) % Immature Gran % (Auto) (0.00-0.4) % Nucleat RBC Rel Count (0.00-0.1) % Eos # (Auto) (0-0.5) x10^3/uL Immature Gran # (Auto) (0.00-0.03) x10^3u/L Absolute Lymphs (auto) (1.0-4.6) x10^3/uL Absolute Monos (auto) (0.0-1.3) x10^3/uL Absolute Nucleated RBC (0.00-0.01) x10^3u/L Lymphocytes % (24.0-44.0) % Monocytes % (0.0-12.0) % Eosinophils % (0.00-5.0) % Basophils % (0.0-0.4) % Absolute Granulocytes (1.4-6.9) x10^3/uL Basophils # (0-0.4) x10^3/uL POC Glucometer 114 H (74 to 106) mg/dL Hemoglobin A1c (4.5-6.0) % Troponin I < 0.012 (0.000-0.034) ng/mL NT-Pro-B Natriuret Pep (<300) pg/mL 03/14/23 03/14/23 03/14/23 Range/Units 16:00 16:32 22:20 WBC (4.0-10.5) x10^3/uL RBC (4.1-5.6) x10^6/uL Hgb 10.5 L 10.2 L (12.5-18.0) g/dL Hct 33.1 L 31.9 L (42-50) % MCV (78-100) fL MCH (26-32) pg MCHC (32-36) g/dL RDW (11.5-14.0) % Plt Count (150-450) x10^3/uL MPV (7.5-11.0) fL Gran % (36.0-66.0) % Immature Gran % (Auto) (0.00-0.4) % Nucleat RBC Rel Count (0.00-0.1) % Eos # (Auto) (0-0.5) x10^3/uL Immature Gran # (Auto) (0.00-0.03) x10^3u/L Absolute Lymphs (auto) (1.0-4.6) x10^3/uL Absolute Monos (auto) (0.0-1.3) x10^3/uL Absolute Nucleated RBC (0.00-0.01) x10^3u/L Lymphocytes % (24.0-44.0) % Monocytes % (0.0-12.0) % Eosinophils % (0.00-5.0) % Basophils % (0.0-0.4) % Absolute Granulocytes (1.4-6.9) x10^3/uL Basophils # (0-0.4) x10^3/uL POC Glucometer 84 (74 to 106) mg/dL Hemoglobin A1c (4.5-6.0) % Troponin I (0.000-0.034) ng/mL NT-Pro-B Natriuret Pep (<300) pg/mL 03/14/23 Range/Units 22:20 WBC (4.0-10.5) x10^3/uL RBC (4.1-5.6) x10^6/uL Hgb (12.5-18.0) g/dL Hct (42-50) % MCV (78-100) fL MCH (26-32) pg MCHC (32-36) g/dL RDW (11.5-14.0) % Plt Count (150-450) x10^3/uL MPV (7.5-11.0) fL Gran % (36.0-66.0) % Immature Gran % (Auto) (0.00-0.4) % Nucleat RBC Rel Count (0.00-0.1) % Eos # (Auto) (0-0.5) x10^3/uL Immature Gran # (Auto) (0.00-0.03) x10^3u/L Absolute Lymphs (auto) (1.0-4.6) x10^3/uL Absolute Monos (auto) (0.0-1.3) x10^3/uL Absolute Nucleated RBC (0.00-0.01) x10^3u/L Lymphocytes % (24.0-44.0) % Monocytes % (0.0-12.0) % Eosinophils % (0.00-5.0) % Basophils % (0.0-0.4) % Absolute Granulocytes (1.4-6.9) x10^3/uL Basophils # (0-0.4) x10^3/uL POC Glucometer 95 (74 to 106) mg/dL Hemoglobin A1c (4.5-6.0) % Troponin I (0.000-0.034) ng/mL NT-Pro-B Natriuret Pep (<300) pg/mL Radiology Exams: Radiology Procedures Category Date Time Status ABDOMEN AND PELVIS W/0 CONTRAS [CT] Stat Exams 03/14/23 04:42 Completed Assessment/Plan (1) Rectal bleeding Current Visit: Yes Status: Acute Assessment & Plan: -Consult surgery for colonoscopy/EGD if able, may have to do as OP with GI referral -HGB is stable, will monitor H&H Q8h, transfuse if <7 -PT/INR at 1 -Continuous tele -NS at 100 ml/hr -PPI- protonix -Avoid NSAIDS/ASA -Hold plavix for now /2: -Continue to hold plavix/ASA -Plans for colonoscopy today -Hgb now at 9.7 -Continue PPI Code(s): K62.5 - HEMORRHAGE OF ANUS AND RECTUM (2) History of ST elevation myocardial infarction (STEMI) Current Visit: Yes Status: Acute Assessment & Plan: -Noted, EKG, Trops unremarkable -No CP Code(s): I25.2 - OLD MYOCARDIAL INFARCTION (3) Vasovagal episode Current Visit: Yes Status: Acute Assessment & Plan: -May be secondary to lopressor Code(s): R55 - SYNCOPE AND COLLAPSE (4) CHF (congestive heart failure) Current Visit: No Status: Acute Assessment & Plan: -noted will continue home meds -Supplemental oxygen for goal of >92% -Monitor for fluid overload, Consider lasix if exacerbation -Strict I&O -BNP -Optimize renal/lytes with goal K>4 MG>2 Code(s): I50.9 - HEART FAILURE, UNSPECIFIED (5) Hypertension Current Visit: No Status: Acute Qualifiers: Hypertension type: unspecified secondary hypertension Assessment & Plan: -Patient given Lopressor in ED, vitals now stable, will continue home medications Code(s): I10 - ESSENTIAL (PRIMARY) HYPERTENSION Additional CC's: MASOOD BUCKLEY Code(s): K62.5 - HEMORRHAGE OF ANUS AND RECTUM (2) History of ST elevation myocardial infarction (STEMI) Current Visit: Yes Status: Acute Code(s): I25.2 - OLD MYOCARDIAL INFARCTION (3) Vasovagal episode Current Visit: Yes Status: Acute Code(s): R55 - SYNCOPE AND COLLAPSE (4) CHF (congestive heart failure) Current Visit: No Status: Acute Code(s): I50.9 - HEART FAILURE, UNSPECIFIED (5) Hypertension Current Visit: No Status: Acute Qualifiers: Hypertension type: unspecified secondary hypertension Code(s): I10 - ESSENTIAL (PRIMARY) HYPERTENSION
[2023-03-15 05:55] LABS: Hemoglobin 9.7 g/dL (12.5-18.0); Mean Cell Volume 93.4 fL (78-100); Mean Corpuscular Hemoglobin 29.2 pg (26-32); Mean Corpuscular Hgb Concent. 31.3 g/dL (32-36); Mean Platelet Volume 9.5 fL (7.5-11.0); Platelet Count 181 x10^3/uL (150-450); Red Blood Count 3.32 x10^6/uL (4.1-5.6); Red Cell Distribution Width 13.2 % (11.5-14.0); White Blood Count 4.5 x10^3/uL (4.0-10.5)
[2023-03-15 06:29] LABS: ALBUMIN 3.2 g/dL (3.5-5.0); ANION GAP 12.2 MEQ/L (5-15); BILIRUBIN,TOTAL 0.4 mg/dL (0.2-1.3); Calcium 8.2 mg/dL (8.4-10.2); Creatinine 1 0.58 mg/dL (0.66-1.25); EST GLOMERULAR FILTRATION RATE 112.3 ML/MIN; Potassium 3.9 mmol/L (3.5-5.1); Total Protein 5.9 g/dL (6.3-8.2)
[2023-03-15] MEDS: Sodium Chloride 0.9% 1000 ML 1,000 ML IV SCH (08:12)
[2023-03-15] MEDS ORDERED: DIPRIVAN 200 MG/20 ML IV ONE (09:47)
[2023-03-15] MEDS ORDERED: Versed 2 MG/2 ML Injection ONE (09:51)
[2023-03-15] MEDS: PROTONIX 40 MG IV IV SCH ×2 (11:44→21:54)
[2023-03-15] MEDS: COREG 12.5 MG PO SCH ×2 (11:44→21:53)
[2023-03-15] MEDS: DIOVAN 80 MG PO SCH ×2 (11:44→21:53)
[2023-03-15] MEDS: Aldactone 25 MG PO SCH (11:44)
[2023-03-15 16:10] LABS: Hematocrit 30.1 % (42-50); Hemoglobin 9.5 g/dL (12.5-18.0)
[2023-03-15] MEDS: ZOCOR 20MG PO SCH (21:53)
[2023-03-15 22:38] LABS: Hematocrit 30.3 % (42-50); Hemoglobin 9.5 g/dL (12.5-18.0)
[2023-03-16 04:30] VITALS: TEMP 97.2
--- NOTE | 2023-03-16 05:11 | PCM.DS ---
Discharge Summary Date of Admission: 03/14/23 08:38 Date of Discharge: 03/16/23 Admitting Physician: DREW PEREZ MD Consults: Consults on Case 03/14/23 08:50 Consult Surgery ROUTINE Primary Care Provider: NO FAMILY DOCTOR Allergies Allergies No Known Drug Allergies Allergy (Verified 03/14/23 04:26) Hospital Summary - Hospital Course Hospital Course: is a 57 year old male with a past medical history of STEMI (02/03/23, placed on ASA/Plavix follows with Dr. Lee), HTN, GERD, HLD, diverticulosis, rectal bleeding (last colonoscopy 5 years ago), and CHF who presented to ED on 03/14/23 with complaints of left sided sharp/cramping abdominal pain, nausea, and diarrhea with moderate bright red blood and clots which began approximately at 1 a.m this morning. Patient states he had a similar episode about 3-4 years ago for which colonoscopy showed diverticulosis. Patient arrived hypertensive and was given Lopressor, shortly after patient states he was sitting up in bed and felt faint. Surgery was consulted for colonoscopy which showed diverticulosis with no active bleeding. Hemoglobin has remained stable. Patient reports that he is no longer having abdominal pain, no further episodes of rectal bleeding. All questions and concerns have been addressed, patient stable for discharge. Patient has been advised to follow up op with PCP Discharge Note New Diagnosis: GI bleed New Medications:Protonix Follow Up: pcp/GI/[facility] Latest Assessment & Plan (1) Rectal bleeding Current Visit: Yes Status: Acute Assessment & Plan: -Consult surgery for colonoscopy/EGD if able, may have to do as OP with GI referral -HGB is stable, will monitor H&H Q8h, transfuse if <7 -PT/INR at 1 -Continuous tele -NS at 100 ml/hr -PPI- protonix -Avoid NSAIDS/ASA -Hold plavix for now 03/15: -Continue to hold plavix/ASA -Plans for colonoscopy today -Hgb now at 9.7 -Continue PPI Code(s): K62.5 - HEMORRHAGE OF ANUS AND RECTUM (2) History of ST elevation myocardial infarction (STEMI) Current Visit: Yes Status: Acute Assessment & Plan: -Noted, EKG, Trops unremarkable -No CP Code(s): I25.2 - OLD MYOCARDIAL INFARCTION (3) Vasovagal episode Current Visit: Yes Status: Acute Assessment & Plan: -May be secondary to lopressor Code(s): R55 - SYNCOPE AND COLLAPSE (4) CHF (congestive heart failure) Current Visit: No Status: Acute Assessment & Plan: -noted will continue home meds -Supplemental oxygen for goal of >92% -Monitor for fluid overload, Consider lasix if exacerbation -Strict I&O -BNP -Optimize renal/lytes with goal K>4 MG>2 Code(s): I50.9 - HEART FAILURE, UNSPECIFIED (5) Hypertension Current Visit: No Status: Acute Qualifiers: Hypertension type: unspecified secondary hypertension Assessment & Plan: -Patient given Lopressor in ED, vitals now stable, will continue home medications Code(s): I10 - ESSENTIAL (PRIMARY) HYPERTENSION Additional CC's: MASOOD BUCKLEY I spent 35 minutes [id number] with the patient on the day of discharge performing discharge exam, discussing hospital stay and discharge instructions with patient and caregivers, preparation of discharge records, prescriptions & referral forms and addressing any questions/concerns the patient had as documented above. - Vitals & Intake/Output Vital Signs: Vital Signs Temperature 97.2 F 03/16/23 04:00 Pulse Rate 77 03/16/23 04:00 Respiratory Rate 18 03/16/23 04:00 Blood Pressure 157/81 03/16/23 04:00 O2 Sat by Pulse Oximetry 94 L 03/16/23 04:00 Intake & Output: Intake & Output 03/13/23 03/14/23 03/15/23 03/16/23 11:59 11:59 11:59 11:59 Intake Total 0 1000 480 Output Total 1500 Balance 0 -500 480 Weight 107.5 kg 107.7 kg - Lab Result Diagrams: 03/16/23 05:55 03/16/23 05:55 Lab Results-Last 24 Hrs: Lab Results-Last 24 Hours 03/15/23 03/15/23 03/15/23 Range/Units 05:50 05:50 07:56 WBC 4.5 (4.0-10.5) x10^3/uL RBC 3.32 L (4.1-5.6) x10^6/uL Hgb 9.7 L (12.5-18.0) g/dL Hct 31.0 L (42-50) % MCV 93.4 (78-100) fL MCH 29.2 (26-32) pg MCHC 31.3 L (32-36) g/dL RDW 13.2 (11.5-14.0) % Plt Count 181 (150-450) x10^3/uL MPV 9.5 (7.5-11.0) fL Sodium 135 L (137-145) mmol/L Potassium 3.9 (3.5-5.1) mmol/L Chloride 105 (98-107) mmol/L Carbon Dioxide 22 (22-30) mmol/L Anion Gap 12.2 (5-15) MEQ/L BUN 8 L (9-20) mg/dL Creatinine 0.58 L (0.66-1.25) mg/dL Estimated GFR 112.3 ML/MIN Glucose 111 H (74-106) mg/dL POC Glucometer 107 H (74 to 106) mg/dL Calcium 8.2 L (8.4-10.2) mg/dL Total Bilirubin 0.40 (0.2-1.3) mg/dL AST 18 (17-59) U/L ALT 18 (0-50) U/L Alkaline Phosphatase 71 (38-126) U/L Serum Total Protein 5.9 L (6.3-8.2) g/dL Albumin 3.2 L (3.5-5.0) g/dL 03/15/23 03/15/23 03/15/23 Range/Units 12:04 16:05 16:46 WBC (4.0-10.5) x10^3/uL RBC (4.1-5.6) x10^6/uL Hgb 9.5 L (12.5-18.0) g/dL Hct 30.1 L (42-50) % MCV (78-100) fL MCH (26-32) pg MCHC (32-36) g/dL RDW (11.5-14.0) % Plt Count (150-450) x10^3/uL MPV (7.5-11.0) fL Sodium (137-145) mmol/L Potassium (3.5-5.1) mmol/L Chloride (98-107) mmol/L Carbon Dioxide (22-30) mmol/L Anion Gap (5-15) MEQ/L BUN (9-20) mg/dL Creatinine (0.66-1.25) mg/dL Estimated GFR ML/MIN Glucose (74-106) mg/dL POC Glucometer 87 80 (74 to 106) mg/dL Calcium (8.4-10.2) mg/dL Total Bilirubin (0.2-1.3) mg/dL AST (17-59) U/L ALT (0-50) U/L Alkaline Phosphatase (38-126) U/L Serum Total Protein (6.3-8.2) g/dL Albumin (3.5-5.0) g/dL 03/15/23 03/15/23 03/15/23 Range/Units 16:46 21:24 22:36 WBC (4.0-10.5) x10^3/uL RBC (4.1-5.6) x10^6/uL Hgb 9.5 L (12.5-18.0) g/dL Hct 30.3 L (42-50) % MCV (78-100) fL MCH (26-32) pg MCHC (32-36) g/dL RDW (11.5-14.0) % Plt Count (150-450) x10^3/uL MPV (7.5-11.0) fL Sodium (137-145) mmol/L Potassium (3.5-5.1) mmol/L Chloride (98-107) mmol/L Carbon Dioxide (22-30) mmol/L Anion Gap (5-15) MEQ/L BUN (9-20) mg/dL Creatinine (0.66-1.25) mg/dL Estimated GFR ML/MIN Glucose (74-106) mg/dL POC Glucometer 80 103 (74 to 106) mg/dL Calcium (8.4-10.2) mg/dL Total Bilirubin (0.2-1.3) mg/dL AST (17-59) U/L ALT (0-50) U/L Alkaline Phosphatase (38-126) U/L Serum Total Protein (6.3-8.2) g/dL Albumin (3.5-5.0) g/dL Micro Results-Entire Visit: Accuchecks Date 03/15/23 Date 03/15/23 Date 03/15/23 Time 16:56 Time 07:58 - Radiology Exams Ordered Rad Exams-Entire Visit: Radiology Procedures Category Date Time Status ABDOMEN AND PELVIS W/0 CONTRAS [CT] Stat Exams 03/14/23 04:42 Completed - Procedures and Test Procedures and Tests throughout Hospitalization: Therapy Orders & Screens 03/14/23 08:59 EKG REPEAT IN AM Comment: 03/14/23 10:54 Respiratory Therapy Assessment ONCE Comment: Diagnosis: Rectal bleeding Discharge Exam General Appearance: no apparent distress Neurologic Exam: alert, oriented x 3, cooperative Eye Exam: PERRL Ears, Nose, Throat Exam: normal ENT inspection Neck Exam: normal inspection Respiratory Exam: normal breath sounds, lungs clear Cardiovascular Exam: regular rate/rhythm, normal heart sounds Gastrointestinal/Abdomen Exam: soft, normal bowel sounds Rectal Exam: deferred Extremity Exam: normal inspection Skin Exam: normal color Final Diagnosis/Problem List - Final Discharge Diagnosis/Problem (1) Rectal bleeding Current Visit: Yes Status: Resolved Code(s): K62.5 - HEMORRHAGE OF ANUS AND RECTUM (2) History of ST elevation myocardial infarction (STEMI) Current Visit: Yes Status: Chronic Code(s): I25.2 - OLD MYOCARDIAL INFARCTI ON (3) Vasovagal episode Current Visit: Yes Status: Resolved Code(s): R55 - SYNCOPE AND COLLAPSE (4) CHF (congestive heart failure) Current Visit: No Status: Chronic Code(s): I50.9 - HEART FAILURE, UNSPECIFIE D (5) Hypertension Current Visit: No Status: Chronic Code(s): I10 - ESSENTIAL (PRIMARY) HYPERTENSION - Discharge Condition: Fair Prescriptions: New PANTOPRAZOLE 40 mg Tablet [Protonix 40MG Tablet] 40 mg PO DAILY 30 Days #30 tab Continue Spironolactone 25 mg [Aldactone 25 MG] 25 mg PO DAILY Clopidogrel Bisulfate [Clopidogrel] 75 mg PO DAILY Valsartan 80 mg PO BID Aspirin EC 81 mg [Ecotrin 81 mg] 81 mg PO DAILY Carvedilol 12.5 mg [Coreg 12.5 mg] 12.5 mg PO BID Atorvastatin Calcium [Lipitor] 80 mg PO HS Follow up with: SANTANA BRITO [ACTIVE STAFF] - JER GOLDEN DO [ACTIVE STAFF] - (Call friday for new patient appt )
[2023-03-16 06:15] LABS: Hematocrit 30.5 % (42-50); Hemoglobin 9.9 g/dL (12.5-18.0); Mean Cell Volume 93.6 fL (78-100); Mean Corpuscular Hemoglobin 30.4 pg (26-32); Mean Corpuscular Hgb Concent. 32.5 g/dL (32-36); Mean Platelet Volume 9.9 fL (7.5-11.0); Platelet Count 189 x10^3/uL (150-450); Red Blood Count 3.26 x10^6/uL (4.1-5.6)
[2023-03-16 06:45] LABS: ALBUMIN 3.5 g/dL (3.5-5.0); ANION GAP 11.7 MEQ/L (5-15); BILIRUBIN,TOTAL 0.3 mg/dL (0.2-1.3); Calcium 8.4 mg/dL (8.4-10.2); Creatinine 1 0.6 mg/dL (0.66-1.25); EST GLOMERULAR FILTRATION RATE 111.2 ML/MIN; Potassium 3.4 mmol/L (3.5-5.1); Total Protein 6.3 g/dL (6.3-8.2)
[2023-03-16] MEDS ORDERED: Klor Con PO ONE (07:02)
[2023-03-16 08:06] VITALS: BP 179/96; PULSE 71; RESP 19; O2SAT 96
[2023-03-16] MEDS: COREG 12.5 MG PO SCH (10:31)
[2023-03-16] MEDS: DIOVAN 80 MG PO SCH (10:31)
[2023-03-16] MEDS: PROTONIX 40 MG IV IV SCH (10:31)
[2023-03-16] MEDS: Aldactone 25 MG PO SCH (10:31)
[2023-03-16 10:34] LABS: Hematocrit 31.3 % (42-50); Hemoglobin 9.8 g/dL (12.5-18.0)
--- NOTE | 2023-03-17 10:55 | OP ---
SURGERY DATE/TIME: 03/15/2023 0946 PREOPERATIVE DIAGNOSIS: GI bleed. POSTOPERATIVE DIAGNOSIS: Upper sigmoid GI bleed from diverticulosis. PROCEDURE: Diagnostic colonoscopy complete to cecum. SURGEON: Len Pacheco M.D. ANESTHESIA: MAC. COMPLICATIONS: None. CONDITION: Stable. FINDINGS: He had severe sigmoid diverticulosis. It looks like he bled from the upper end of this. Matter of fact I think we even saw probably the diverticulum that had been the problem. It is not bleeding now. He was clean up above this with no blood. DESCRIPTION OF PROCEDURE: The scope was started at the anus, rectum, sigmoid. Severe diverticulosis is noted and I thought there was a specific diverticulum that probably had bled. It was stopped now. Just a couple inches above this the blood had stopped and there was no blood in the transverse or the right colon. Ileocecal valve was normal. Appendiceal orifice normal. There were no mucosal lesions on the right side. On the left side, there was coated old blood but there was nothing gross. IMPRESSION: The patient has had a recent proximal sigmoid diverticulosis bleed which has stopped. He can have a regular diet. He can resume his blood thinner when primary care provider thinks is appropriate.
== END 2023-03-16 11:29 | disposition home or self-care (01) ==
LOC: ED 04:07 → MED SURG 08:38
PROVIDERS: ADMIT Internal Medicine; ATTEND Internal Medicine
DX: K62.5 Hemorrhage of anus and rectum (principal); I25.2 Old myocardial infarction; R55 Syncope and collapse; I11.0 Hypertensive heart disease with heart failure; I50.9 Heart failure, unspecified; I25.10 Atherosclerotic heart disease of native coronary artery without angina pectoris; E78.5 Hyperlipidemia, unspecified; E87.1 Hypo-osmolality and hyponatremia; K57.30 Diverticulosis of large intestine without perforation or abscess without bleeding; K21.9 Gastro-esophageal reflux disease without esophagitis; Z79.01 Long term (current) use of anticoagulants; Z79.899 Other long term (current) drug therapy; Z20.828 Contact with and (suspected) exposure to other viral communicable diseases
CPT/HCPCS: 36000; 36415; 45378; 74176; 80053; 82947; 83036; 83735; 83880; 84132; 84484; 85014; 85018; 85025; 85027; 85610; 93005; 93268; 96360; 96374; 96375; 99285; G0378; Q3014; J2250; J2704; A9270-GY